=== PATIENT | male | born 1990 | race Caucasian/White ===

== ENCOUNTER 2018-05-07 14:32 | Emergency (ER) | payer OTHER ==
[~2018-05-07] VITALS: Ht 175.3 cm; Wt 68.0 kg
[2018-05-07] MEDS ORDERED: Norco 5-325 Ta1 EACH PO (15:22)
== END 2018-05-07 15:28 | disposition home or self-care (01) ==
LOC: ER 14:32
DX: S22.42XA Multiple fractures of ribs, left side, initial encounter for closed fracture (principal); Z87.891 Personal history of nicotine dependence; W18.2XXA Fall in (into) shower or empty bathtub, initial encounter
CPT/HCPCS: 71101; 99283-25